=== PATIENT | female | born 1980 | race Caucasian/White ===

== ENCOUNTER 2021-07-21 09:18 | Day surgery (SDC) | payer BC ==
[2021-07-19 09:24] LABS: Absolute Lymphocytes (CBC) 1.9 K/uL (0.7-4.9); Hematocrit 37.9 % (36.0-45.0); RBC Red Blood Cell Count 4.32 M/uL (3.86-4.86)
[2021-07-19 09:29] LABS: Urine Appearance CLEAR (Clear); Urine Bilirubin NEGATIVE (Negative); Urine Blood NEGATIVE (Negative); Urine Color YELLOW (Yellow); Urine Glucose NEGATIVE (Negative); Urine Protein NEGATIVE (Negative); Urine Specific Gravity 1.015 (1.005-1.030)
[2021-07-19 09:30] LABS: Urine Microscopic Reflex NO UMIC
[2021-07-21] MEDS ORDERED: Ringers Lactate 1,000 ML IV ONE ×2 (09:32→13:15)
[2021-07-21] MEDS ORDERED: SCOPOLAMINE HYDROBROMIDE PATCH TD ONE (09:32)
[2021-07-21 09:35] LABS: Specific Gravity 1.025 (1.005-1.030)
[2021-07-21] MEDS ORDERED: MIDAZOLAM HCL 2 MG/2 ML INJ ONE (10:00)
[2021-07-21] MEDS ORDERED: dexAMETHasone 10 MG/ML VIAL ONE (10:01)
[2021-07-21] MEDS ORDERED: propofoL 200 MG/20 ML VIAL IV ONE (10:01)
[2021-07-21] MEDS ORDERED: LIDOCAINE 1% MPF 2 ML AMPULE ONE (10:01)
[2021-07-21] MEDS ORDERED: FENTANYL CITR 100 MCG/2 ML ONE (10:01)
[2021-07-21] MEDS ORDERED: ROCURONIUM 50 MG/5 ML VIAL IV ONE ×2 (10:01→13:36)
[2021-07-21] MEDS ORDERED: KETOROLAC 30 MG/ML INJ ONE (10:02)
[2021-07-21] MEDS ORDERED: NA CHLORIDE 0.9% 2,000 ML ONE (11:32)
[2021-07-21] MEDS ORDERED: GLYCOPYRROLATE 0.2 MG/ML SYR ONE ×2 (11:34→14:15)
[2021-07-21] MEDS: BUPIVACAINE 0.25% PF 10 ML VIAL ONE ×2 (11:51→12:55)
[2021-07-21] MEDS: CEFAZOLIN/SWI 2gm 2 GM/20 ML SYR ONE ×2 (12:05→12:15)
[2021-07-21] MEDS ORDERED: EPHEDRINE SULF 50 MG/ML VIAL ONE (13:02)
[2021-07-21] MEDS ORDERED: NEOSTIGMINE 1 MG/ML -5 ML ONE (14:23)
[2021-07-21] MEDS ORDERED: HYDROCODONE/APAP 5/325 MG TAB PO PRN (15:04)
[2021-07-21] MEDS ORDERED: MEPERIDINE HCL 25 MG/ML SYR IM PRN (15:04)
[2021-07-21] MEDS ORDERED: PROMETHAZINE INJ 25 MG/ML AMP IV PRN (15:04)
[2021-07-21] MEDS ORDERED: IBUPROFEN 200 MG TAB PO PRN (15:04)
[2021-07-21 15:11] VITALS: O2SAT 100
--- NOTE | 2021-07-21 15:14 | P.BOP ---
Preoperative diagnosis: AUB-O, dysmenorrhea, left adnexal mass Postoperative diagnosis: same, endometirosis extensive Primary procedure: hystscEndometrial Ablation,Lapsc LSO,extensive endometriosis excision Secondary procedure: left ureterolysis, CDS, RVS endo excision [employer] Consultant: Lona Gannon Estimated blood loss: min Specimen: L tube+ov w mass/L lat wall+USL/R RVS,CDS/pararectal/R USL/Ant peritoneal Findings: endo on RVS, left lat wall, right ut ov+USL,CDS,RVS, Ant peritoneal endo Anesthesia: General Complications: None Transferred to: Recovery Room Condition: Good (ablation L=4,W=2.9,Y=939R, T=62sec)
[2021-07-21 15:52] VITALS: BP 119/63; TEMP 98.8
[2021-07-21] MEDS ORDERED: HYDROCODONE/APAP 5/325 MG TAB ONE (16:18)
[2021-07-22] MEDS ORDERED: RANITIDINE 150 MG TABLET PO SCH (09:00)
[2021-07-22] MEDS ORDERED: IBUPROFEN 200 MG TAB PO SCH (09:00)
[2021-07-22] MEDS ORDERED: VENLAFAXINE HCL XR 75 MG CAP PO SCH (09:00)
--- NOTE | 2021-08-01 10:33 | OP ---
Date of Procedure: 07/21/2021 Surgeon: Annel Patrick MD Registered Nursing Professor: Lona Gannon. Preoperative Diagnoses: Menorrhagia (AUB-O), dysmenorrhea, and left adnexal mass. 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 Procedures Performed: 1.Hysteroscopy, endometrial ablation with NovaSure. 2.Laparoscopy, left salpingo-oophorectomy. 3.Extensive endometriosis excision. 4.Left ureterolysis and excision from the cul-de-sac and rectovaginal septum endometriosis excision. Anesthesia: General endotracheal. Specimens: 1.Left tube and ovary with the mass. 2.Left lateral wall and uterosacral endometriosis. 3.Right rectovaginal septum and cul-de-sac endo. 4.Right pararectal space endometriosis. 5.Right uterosacral endometriosis. 6.Anterior peritoneal endometriosis. Findings: 1.Endometriosis seen on the rectovaginal septum, left lateral wall, right side of the uterus, ovary, and uterosacral ligament, cul-de-sac, rectovaginal septum, anterior pelvic and anterior peritoneum b ilaterally immediately. 2.The bladder pillars ablation was done with cavity length of 4 cm, width of 2.9 cm, power of 109 wa tts, T equals 62 seconds. 3.The right tube was absent, contrary to the patient's history. 4.There were 2 residual rectal implants, one on the left margin of the rectosigmoid mostly the rectu m and then one implant on the right border of the rectum slightly more proximal than the lower one. Pictures were clearly taken and included in the patient's chart. Complications: No complications. Drains: No drains. Condition: The patient's condition stable. Indications: The patient presented with heavy bleeding and severe cramps. On ultrasound evaluation, found to have left adnexal mass, for which her CA-125 was normal. Given her severe pain, endometrio sis was suspected. Discussed about all the different options of medical management, surgical managem ent with ablation, left salpingo-oophorectomy, and possible endometriosis excision. Hysterectomy is too aggressive for this patient. She still needed endometriosis excision. So, once this was explain ed, she was consented for an ablation with laparoscopy, left salpingo-oophorectomy to remove the adne xal mass. With an understanding that if there was a malignancy detected, then she would need further surgery and removal of endometriosis at the same time of diagnosis. Procedure In Detail: She was re-consented and taken back to OR, and antibiotic was given preop, Ance f 2 g. SCDs were placed. Time-out was done. The patient was placed in the dorsal lithotomy positio n after general anesthesia was given. Abdomen, vulva, vagina, and perineum were prepped and draped i n a sterile fashion. Speculum was placed to expose the cervix. Anterior lip was grasped with 2 Krzysztof s clamp. SlimLine hysteroscope was placed through the cervical canal into the uterine cavity. After assessing the direct measurements, then the scope was removed and NovaSure device was deployed after priming the was placed. Cavity integrity test passed without any problems. Then, the ab lation cycle was started and was uninterrupted for 62 seconds. The device was undeployed. Hysterosc opy was performed with excellent ablation effect in the global endometrial cavity. Thorough irrigation was verified. Then, the scope was removed and manipulator was placed. Pringle was placed and attached for drainage, and this area was draped. A 1 cm infraumbilical incision was made with a scalpel using the open laparoscopy technique. Fascia was incised and tagged with 0 Vicryl sutures. Peritoneum was entered sharply. Clyde was introduced , insufflated the abdomen, and site of entry was checked and was unremarkable. A 5 mm suprapubic and left lower quadrant incisions were made and trocars were placed. Then, peritoneal cavitary survey w as done and findings were as above. Significant endometriotic and deep infiltrating lesions were not ed, and these were very clearly defined and infiltrating with normal peritoneal lining present betwee n the implants. It was not widespread. It was more deep and infiltrating in the sites that it was p resent. So, the implants were seen on the rectovaginal septum, left lateral wall, which extended int o the left periureteric area. Right side of the uterus on the serosa and right ovary, these were att ached to the uterosacral ligament and the endometriosis was all present and on the cul-de-sac and the rectovaginal septum endometriotic implants present on both sides proximal to the bladder pillar. All the implants were removed. The plan was to remove all the implants systematically, star ting in the posterior aspect and coming anteriorly. The left ovary was significantly enlarged and the mass was on the ovary. covering appeare d to be unremarkable. After pelvic washings were performed, which were not laterally to t he IP ligament and peritoneum opened between . The pedicle was taken down with the help of the LigaSure and dissected all the way to the utero-ovarian ligament. Tube and ovary wer e removed and dissected the mesosalpinx. Utero-ovarian ligament was taken down. Specimen was placed in the right lower quadrant. The next step was left ureterolysis. Peritoneum was incised parallel to the ureter from the proximal part of the ureter right underneath the IP ligament and ureter laterally and medially, mariajose en all the way down to the level of the ureteric tunnel where the endometriosis was widespread all th e way to the uterosacrum. So, the lateral wall was excised, marking the peritoneal incision all arou nd the implants and then excising it and stripping it off from the periureteric and the lateral wall. The uterosacral endo was also removed and handed out in the same specimen. Then, the right rectovagi nal septal area and cul-de-sac endometriosis was addressed after releasing the right ovary from the e ndometriotic tissue at the uterosacral ligament once the right ovary was dissected away, identifying the ureter, uterine artery, knowing the relations. Once this was released and the endo was scraped o ff, then the uterosacral endo was removed after making a peritoneal incision between the lateral to t he ureter, stripping this off carefully, not injuring the ureter or the uterine artery all the way to the right uterosacral. This was excised. Then, the pararectal space was entered and dissection was carried all the way down into the rectovaginal septum. An incision was made with monopolar needle o n the rectovaginal septum closer to the uterus and then this endometriosis was present was stripped o f the septum and handed. Then, the cul-de-sac endometriosis was also attempted to be stripped off by dissecting the rectum, placing a medium EEA sizer, and once all the implants were removed excepting the implant on the left lateral margin, which appeared to be penetrating into the rectal musculature, this was left alone and there was a smaller implant more proximal on the right broader, which after stripping the implants and making a space between the rectum and the implants, the implants were exci sed, but this one implant that was present. I was unable to remove it without any significant injury to . Once all the implants were removed, they were handed off for permanent pathology. T left tube and ovary were placed in an Endo Catch bag and removed through the umbilical incision. The ovarian fluid was drained with a needle and then pulled out. Then, incisions were made all aroun d the peritoneal implants in the anterior cul-de-sac and excised. Bladder was dissected and left wit hout any injury. All the implants were handed out as well. Thorough irrigation and suction were per formed. No evidence of any electrical, mechanical, or thermal injury to the ureters. Instruments we re removed after desufflating the abdomen. Fascia at the umbilicus was closed with 0 Vicryl tag sutu res tied together, 4-0 chromic interrupted for all skin incisions. Manipulator was removed. Pringle w as removed. Instrument, needle, and sponge counts were correct. The patient has an appointment in t office in 1 week. Her right tube was absent. Left tube was present, which she gave the opposite history for; however, this was confirmed and all the findings were discussed with her . KARINA/SOFIA Voice ID: [id number] Report ID: [id number]
== END 2021-07-21 16:36 | disposition home or self-care (01) ==
LOC: OR 09:18
PROVIDERS: ATTEND Obstetrics & Gynecology
PROC: 0UT74ZZ Resection of Bilateral Fallopian Tubes, Percutaneous Endoscopic Approach (ICD-10-PCS; 2021-07-21)
PROC: 0UB44ZZ Excision of Uterine Supporting Structure, Percutaneous Endoscopic Approach (ICD-10-PCS; 2021-07-21)
PROC: 0UBF4ZZ Excision of Cul-de-sac, Percutaneous Endoscopic Approach (ICD-10-PCS; 2021-07-21)
PROC: 0UBG4ZZ Excision of Vagina, Percutaneous Endoscopic Approach (ICD-10-PCS; 2021-07-21)
PROC: 0TBB4ZZ Excision of Bladder, Percutaneous Endoscopic Approach (ICD-10-PCS; 2021-07-21)
PROC: 0U5B8ZZ Destruction of Endometrium, Via Natural or Artificial Opening Endoscopic (ICD-10-PCS; 2021-07-21)
PROC: 0UT24ZZ Resection of Bilateral Ovaries, Percutaneous Endoscopic Approach (ICD-10-PCS; principal; 2021-07-21 11:15)
DX: N94.6 Dysmenorrhea, unspecified (principal); N92.6 Irregular menstruation, unspecified; R19.09 Other intra-abdominal and pelvic swelling, mass and lump; F17.210 Nicotine dependence, cigarettes, uncomplicated; N80.3 Endometriosis of pelvic peritoneum; N80.4 Endometriosis of rectovaginal septum and vagina; Z20.822 Contact with and (suspected) exposure to COVID-19
CPT/HCPCS: 58661; 58563; 85025; 36415; 86900; 86850; 81025; 86901; 88305; 81003; 58662; 53899; U0003; J2704; J2250; J3010; J1100; J2710; J0690; J7120 ×2; J7030